=== PATIENT | female | born 1950 | race American Indian/Alaskan Native ===

== ENCOUNTER 2016-06-26 11:51 | Emergency (ER) | payer MEDICARE ==
[2016-06-26 12:11] VITALS: BP 153/88
[2016-06-26 12:42] LABS: Bilirubin,Urine NEG (Negative); Blood,Urine SM (Negative); Ketones,Urine NEG (Negative); Leukocyte Esterase,Urine NEG (Negative); Mucus,Urine 3+ /HPF; Nitrite,Urine NEG (Negative); Urobilinogen,Urine < 2.0 mg/dL (<2.0)
[2016-06-26] MEDS ORDERED: TORADOL IM ONE (16:44)
--- NOTE | 2016-06-26 17:21 | Emergency Department Report ---
ED Back Pain/Injury HPI - General Chief Complaint: Extremity Injury, Lower Stated Complaint: LEGS/BACK PAIN Time Seen by Provider: 06/26/16 16:44 Source: patient Limitations: No Limitations - History of Present Illness MD Complaint: back pain Onset/Timin -: Gradual, month(s) Similar Symptoms Previously: Yes Place: home Radiation: none Severity: moderate Quality: burning, sharp, dull Consistency: constant Improves With: none Worsens With: movement Context: while lifting, bending Associated Symptoms: denies: confusion, weakness, chest pain, numbness, fever/ chills, constipation, nausea/vomiting, rash, seizure Treatments Prior to Arrival: cold therapy - Related Data Previous Rx's Medication Instructions Recorded Last Taken Type Trifluridine [Viroptic 1%] 2 drop OU QID #1 bottle 08/14/14 06/26/16 09:00 Rx Diclofenac Potassium 50 mg PO BID #20 tablet 06/26/16 Unknown Rx Triamcinolone 0.1% [Kenalog 0.1% 1 applic TP TID #1 tube 06/26/16 Unknown Rx CREAM] methylPREDNISolone [Medrol] 4 mg PO QAM #1 tab.ds.pk 06/26/16 Unknown Rx Allergies Allergy/AdvReac Type Severity Reaction Status Date / Time Penicillins Allergy Itching Verified 06/26/16 12:11 ED Review of Systems ROS: Stated complaint: LEGS/BACK PAIN Other details as noted in HPI Comment: All other systems reviewed and negative ED Past Medical Hx - Past Medical History Additional medical history: vision problems - Surgical History Past Surgical History?: No - Social History Smoking Status: Current Every Day Smoker Substance Use Type: Alcohol - Medications Home Medications: Home Medications Medication Instructions Recorded Confirmed Last Taken Type Trifluridine [Viroptic 1%] 2 drop OU QID #1 bottle 08/14/14 06/26/16 06/26/16 09 :00 Rx Diclofenac Potassium 50 mg PO BID #20 tablet 06/26/16 Unknown Rx Triamcinolone 0.1% [Kenalog 0.1% 1 applic TP TID #1 tube 06/26/16 Unknown Rx CREAM] methylPREDNISolone [Medrol] 4 mg PO QAM #1 tab.ds.pk 06/26/16 Unknown Rx ED Physical Exam - General Limitations: No Limitations General appearance: alert, in no apparent distress - Head Head exam: Present: atraumatic, normocephalic - Eye Eye exam: Present: normal appearance - ENT ENT exam: Present: mucous membranes moist - Neck Neck exam: Present: normal inspection - Respiratory Respiratory exam: Present: normal lung sounds bilaterally. Absent: respiratory distress - Cardiovascular Cardiovascular Exam: Present: regular rate, normal rhythm. Absent: systolic murmur, diastolic murmur, rubs, gallop - GI/Abdominal GI/Abdominal exam: Present: soft, normal bowel sounds - Extremities Exam Extremities exam: Present: normal inspection - Back Exam Back exam: Present: normal inspection, full ROM, tenderness, muscle spasm, paraspinal tenderness - Neurological Exam Neurological exam: Present: alert, oriented X3 - Psychiatric Psychiatric exam: Present: normal affect, normal mood - Skin Skin exam: Present: warm, dry, intact, normal color. Absent: rash ED Course Vital Signs 06/26/16 06/26/16 12:03 17:09 Temperature 97.8 F Pulse Rate 80 Respiratory 19 18 Rate Blood Pressure 153/88 O2 Sat by Pulse 100 Oximetry Critical care attestation.: If time is entered above; I have spent that time in minutes in the direct care of this critically ill patient, excluding procedure time. ED Disposition Clinical Impression: Back pain Disposition: DISCHARGED TO HOME OR SELFCARE Is pt being admited?: No Does the pt Need Aspirin: No Condition: Good Instructions: Back Pain (ED) Prescriptions: Diclofenac Potassium 50 mg PO BID #20 tablet methylPREDNISolone [Medrol] 4 mg PO QAM #1 tab.ds.pk Triamcinolone 0.1% [Kenalog 0.1% CREAM] 1 applic TP TID #1 tube Referrals: PRIMARY CARE,MD [Primary Care Provider] - 3-5 Days Time of Disposition: 17:21
--- NOTE | 2016-06-27 15:44 | Vascular Lab Report ---
Right Lower Extremity Venous Duplex Study: Reason for Exam: Right leg pain. Comments on the Right: All veins visualized are freely compressible without evidence of internal echogenicity. Flow is spontaneous and phasic throughout. No evidence of acute or chronic thrombus is seen in any of the vessels visualized. Comments on the Left: A limited duplex study was done of the proximal veins of the left lower extremity. All veins visualized are freely compressible without evidence of internal echogenicity. Flow is spontaneous and phasic throughout. No evidence of acute or chronic thrombus is seen in any of the vessels visualized. Impression: No evidence of acute or chronic deep venous thrombosis in the right lower extremity.
== END 2016-06-26 17:32 | disposition home or self-care (01) ==
LOC: ED 11:51
DX: M54.9 Dorsalgia, unspecified (principal); F17.200 Nicotine dependence, unspecified, uncomplicated; Z88.0 Allergy status to penicillin
CPT/HCPCS: 81001; 93971; 96372; 99283; J1885

== ENCOUNTER 2018-12-28 14:18 | Emergency (ER) | payer MEDICARE ==
--- NOTE | 2018-12-28 14:25 | Event Note ---
ED Screening Note Date of service: 12/28/18 Time: 14:24 ED Screening Note: 68 y/o female comes in for "I can't breath". This initial assessment/diagnostic orders/clinical plan/treatment(s) is/are subject to change based on patients health status, clinical progression and re- assessment by fellow clinical providers in the ED. Further treatment and workup at subsequent clinical providers discretion. Patient/guardian urged not to elope from the ED as their condition may be serious if not clinically assessed and managed. Initial orders include:
--- NOTE | 2018-12-28 15:14 | XRay Report ---
CHEST 1 VIEW 12/28/2018 2:57 PM INDICATION / CLINICAL INFORMATION: SOB. COMPARISON: None available. FINDINGS: SUPPORT DEVICES: None. HEART / MEDIASTINUM: Normal heart size. Atherosclerosis in the thoracic aorta. LUNGS / PLEURA: No significant pulmonary or pleural abnormality. No pneumothorax. ADDITIONAL FINDINGS: No significant additional findings. IMPRESSION: 1. No acute findings. Signer Name: Tahir Keating MD Signed: 12/28/2018 3:10 PM Workstation Name: [id number]
[2018-12-28 15:31] LABS: INR 1.03 (0.87-1.13)
[2018-12-28 15:32] LABS: Partial Thromboplastin Time 28.6 Sec. (24.2-36.6)
[2018-12-28 15:38] LABS: Alanine Aminotransferase 11 units/L (7-56); Albumin 4.2 g/dL (3.9-5); BUN/Creatinine Ratio 22; Blood Urea Nitrogen 13 mg/dL (7-17); Calcium 9.5 mg/dL (8.4-10.2); Hemolysis Index 4
[2018-12-28 15:53] LABS: Basophils % (Auto) 0.7 % (0.0-1.8); Eosinophils % (Auto) 0.1 % (0.0-4.3); Hematocrit 41.4 % (30.3-42.9); Hemoglobin 13.9 gm/dl (10.1-14.3); Lymphocytes # (Auto) 1.3 K/mm3 (1.2-5.4); Lymphocytes % (Auto) 22.3 % (13.4-35.0); Mean Corpuscular HGB Conc 34 % (30-34); Mean Corpuscular Volume 93 fl (79-97); Monocytes # (Auto) 0.3 K/mm3 (0.0-0.8); Monocytes % (Auto) 5.3 % (0.0-7.3); Platelet Count 220 K/mm3 (140-440); Red Blood Count 4.47 M/mm3 (3.65-5.03)
--- NOTE | 2018-12-28 17:22 | Emergency Department Report ---
ED General Adult HPI - General Chief complaint: Dyspnea/Respdistress Stated complaint: ZEYAD Time Seen by Provider: 12/28/18 14:24 Source: patient Mode of arrival: Ambulatory Limitations: No Limitations - History of Present Illness Initial comments: Patient is a 68-year-old female with nopast medical problems who is presenting with shortness of breath for 1 day. She denies chest pain cough congestion fevers or chills. Patient states that she also has some mild blurred vision or headache. Shortness of breath is worthless with exertion. The present for the last 24 hours. Patient states she has never been told she has elevated blood pressure is not on medications. - Related Data Previous Rx's Medication Instructions Recorded Last Taken Type Trifluridine [Viroptic 1%] 2 drop OU QID #1 bottle 08/14/14 06/26/16 09:00 Rx Diclofenac Potassium 50 mg PO BID #20 tablet 06/26/16 Unknown Rx Triamcinolone 0.1% [Kenalog 0.1% 1 applic TP TID #1 tube 06/26/16 Unknown Rx CREAM] methylPREDNISolone [Medrol] 4 mg PO QAM #1 tab.ds.pk 06/26/16 Unknown Rx Amlodipine Besylate [Norvasc] 5 mg PO DAILY #30 tablet 12/28/18 Unknown Rx Latanoprost 0.005% 1 drop OP QPM #1 bottle 12/28/18 Unknown Rx Allergies Allergy/AdvReac Type Severity Reaction Status Date / Time Penicillins Allergy Itching Verified 06/26/16 12:11 ED Review of Systems ROS: Stated complaint: ZEYAD Other details as noted in HPI Comment: All other systems reviewed and negative ED Past Medical Hx - Past Medical History Previous Medical History?: Yes Additional medical history: vision problems - Surgical History Past Surgical History?: No - Social History Smoking Status: Current Every Day Smoker Substance Use Type: None - Medications Home Medications: Home Medications Medication Instructions Recorded Confirmed Last Taken Type Trifluridine [Viroptic 1%] 2 drop OU QID #1 bottle 08/14/14 06/26/16 06/26/16 09:00 Rx Diclofenac Potassium 50 mg PO BID #20 tablet 06/26/16 Unknown Rx Triamcinolone 0.1% [Kenalog 0.1% 1 applic TP TID #1 tube 06/26/16 Unknown Rx CREAM] methylPREDNISolone [Medrol] 4 mg PO QAM #1 tab.ds.pk 06/26/16 Unknown Rx Amlodipine Besylate [Norvasc] 5 mg PO DAILY #30 tablet 12/28/18 Unknown Rx Latanoprost 0.005% 1 drop OP QPM #1 bottle 12/28/18 Unknown Rx ED Physical Exam - General Limitations: No Limitations General appearance: alert, in no apparent distress - Head Head exam: Present: atraumatic, normocephalic - Eye Eye exam: Present: normal appearance - ENT ENT exam: Present: mucous membranes moist - Neck Neck exam: Present: normal inspection - Respiratory Respiratory exam: Present: normal lung sounds bilaterally. Absent: respiratory distress, wheezes, rales, rhonchi - Cardiovascular Cardiovascular Exam: Present: regular rate, normal rhythm, normal heart sounds. Absent: systolic murmur, diastolic murmur, rubs, gallop - GI/Abdominal GI/Abdominal exam: Present: soft, normal bowel sounds. Absent: distended, tenderness, guarding, rebound - Extremities Exam Extremities exam: Present: normal inspection - Back Exam Back exam: Present: normal inspection - Neurological Exam Neurological exam: Present: alert, oriented X3 - Psychiatric Psychiatric exam: Present: normal affect, normal mood - Skin Skin exam: Present: warm, dry, intact, normal color. Absent: rash ED Course Vital Signs 12/28/18 12/28/18 12/28/18 14:22 15:12 15:15 Temperature 97.3 F L Pulse Rate 74 73 Respiratory 18 20 20 Rate Blood Pressure 184/110 Blood Pressure 169/112 [Right] O2 Sat by Pulse 95 95 Oximetry 12/28/18 16:33 Temperature Pulse Rate 72 Respiratory 18 Rate Blood Pressure 164/99 Blood Pressure 164/99 [Right] O2 Sat by Pulse 95 Oximetry ED Medical Decision Making - Lab Data Result diagrams: 12/28/18 14:58 12/28/18 14:58 Lab Results 12/28/18 12/28/18 12/28/18 Range/Units 14:58 14:58 14:58 WBC 6.1 (4.5-11.0) K/mm3 RBC 4.47 (3.65-5.03) M/mm3 Hgb 13.9 (10.1-14.3) gm/dl Hct 41.4 (30.3-42.9) % MCV 93 (79-97) fl MCH 31 (28-32) pg MCHC 34 (30-34) % RDW 14.0 (13.2-15.2) % Plt Count 220 (140-440) K/mm3 Lymph % (Auto) 22.3 (13.4-35.0) % [place] % (Auto) 5.3 (0.0-7.3) % Eos % (Auto) 0.1 (0.0-4.3) % Baso % (Auto) 0.7 (0.0-1.8) % Lymph # 1.3 (1.2-5.4) K/mm3 [place] # 0.3 (0.0-0.8) K/mm3 Eos # 0.0 (0.0-0.4) K/mm3 Baso # 0.0 (0.0-0.1) K/mm3 Seg Neutrophils % 71.6 H (40.0-70.0) % Seg Neutrophils # 4.3 (1.8-7.7) K/mm3 PT 13.4 (12.2-14.9) Sec. INR 1.03 (0.87-1.13) APTT 28.6 (24.2-36.6) Sec. Sodium 140 (137-145) mmol/L Potassium 4.0 (3.6-5.0) mmol/L Chloride 102.2 (98-107) mmol/L Carbon Dioxide 25 (22-30) mmol/L Anion Gap 17 mmol/L BUN 13 (7-17) mg/dL Creatinine 0.6 L (0.7-1.2) mg/dL Estimated GFR > 60 ml/min BUN/Creatinine Ratio 22 % Glucose 95 (65-100) mg/dL Calcium 9.5 (8.4-10.2) mg/dL Total Bilirubin 0.40 (0.1-1.2) mg/dL AST 15 (5-40) units/L ALT 11 (7-56) units/L Alkaline Phosphatase 68 (35-129) units/L Troponin T < 0.010 (0.00-0.029) ng/mL NT-Pro-B Natriuret Pep (0-900) pg/mL Total Protein 8.0 (6.3-8.2) g/dL Albumin 4.2 (3.9-5) g/dL Albumin/Globulin Ratio 1.1 % 12/28/18 Range/Units 15:22 WBC (4.5-11.0) K/mm3 RBC (3.65-5.03) M/mm3 Hgb (10.1-14.3) gm/dl Hct (30.3-42.9) % MCV (79-97) fl MCH (28-32) pg MCHC (30-34) % RDW (13.2-15.2) % Plt Count (140-440) K/mm3 Lymph % (Auto) (13.4-35.0) % [place] % (Auto) (0.0-7.3) % Eos % (Auto) (0.0-4.3) % Baso % (Auto) (0.0-1.8) % Lymph # (1.2-5.4) K/mm3 [place] # (0.0-0.8) K/mm3 Eos # (0.0-0.4) K/mm3 Baso # (0.0-0.1) K/mm3 Seg Neutrophils % (40.0-70.0) % Seg Neutrophils # (1.8-7.7) K/mm3 PT (12.2-14.9) Sec. INR (0.87-1.13) APTT (24.2-36.6) Sec. Sodium (137-145) mmol/L Potassium (3.6-5.0) mmol/L Chloride (98-107) mmol/L Carbon Dioxide (22-30) mmol/L Anion Gap mmol/L BUN (7-17) mg/dL Creatinine (0.7-1.2) mg/dL Estimated GFR ml/min BUN/Creatinine Ratio % Glucose (65-100) mg/dL Calcium (8.4-10.2) mg/dL Total Bilirubin (0.1-1.2) mg/dL AST (5-40) units/L ALT (7-56) units/L Alkaline Phosphatase (35-129) units/L Troponin T (0.00-0.029) ng/mL NT-Pro-B Natriuret Pep 49.66 (0-900) pg/mL Total Protein (6.3-8.2) g/dL Albumin (3.9-5) g/dL Albumin/Globulin Ratio % - EKG Data -: EKG Interpreted by Me EKG shows normal: sinus rhythm, axis, intervals, QRS complexes, ST-T waves - EKG Data Interpretation: LVH, other (anterior Q waves) - Radiology Data CHEST 1 VIEW 12/28/2018 2:57 PM INDICATION / CLINICAL INFORMATION: SOB. COMPARISON: None available. FINDINGS: SUPPORT DEVICES: None. HEART / MEDIASTINUM: Normal heart size. Atherosclerosis in the thoracic aorta. LUNGS / PLEURA: No significant pulmonary or pleural abnormality. No pneumo thorax. ADDITIONAL FINDINGS: No significant additional findings. IMPRESSION: 1. No acute findings. Signer Name: Tahir Keating MD Signed: 12/28/2018 3:10 PM Workstation Name: [id number] - Medical Decision Making Patient is 68-year-old [place] female presenting with elevated blood pressure and short of breath with exertion. Symptoms present for greater than 24 hours. Patient's troponin is negative ruling out HI. Chest x-ray shows no acute process. The patient's elevated blood pressure was treated and the patient will be started on blood pressure management with follow-up with cardiology. Critical care attestation.: If time is entered above; I have spent that time in minutes in the direct care of this critically ill patient, excluding procedure time. ED Disposition Clinical Impression: Hypertensive urgency Disposition: DC-01 TO HOME OR SELFCARE Is pt being admited?: No Does the pt Need Aspirin: No Condition: Stable Instructions: Hypertension (ED) Referrals: PETROS REY MD [Staff Physician] - 3-5 Days Time of Disposition: 17:24
[2018-12-28 18:13] VITALS: BP 154/104
== END 2018-12-28 18:00 | disposition home or self-care (01) ==
LOC: ED 14:18
DX: I16.0 Hypertensive urgency (principal); I10 Essential (primary) hypertension; R06.02 Shortness of breath; F17.200 Nicotine dependence, unspecified, uncomplicated; Z79.899 Other long term (current) drug therapy; Z88.0 Allergy status to penicillin
CPT/HCPCS: 36415; 71045; 80053; 83880; 84484; 85025; 85610; 85730; 93005; 93010; 96374

== ENCOUNTER 2020-03-29 10:27 | Emergency (ER) | payer OTHER, MEDICARE ==
[2020-03-29 10:45] VITALS: BP 118/80
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
== END 2020-03-29 15:33 | disposition home or self-care (01) ==
LOC: ED 10:27
DX: S13.4XXA Sprain of ligaments of cervical spine, initial encounter (principal); S39.012A Strain of muscle, fascia and tendon of lower back, initial encounter; F17.200 Nicotine dependence, unspecified, uncomplicated; Z88.0 Allergy status to penicillin; Z79.899 Other long term (current) drug therapy; V49.59XA Passenger injured in collision with other motor vehicles in traffic accident, initial encounter; Y93.89 Activity, other specified; Y92.488 Other paved roadways as the place of occurrence of the external cause; Y99.8 Other external cause status
CPT/HCPCS: 72040; 72070; 72100; 99282

== ENCOUNTER 2021-09-21 18:34 | Emergency (ER) | payer MEDICARE ==
--- NOTE | 2021-09-22 06:56 | Emergency Department Report ---
HPI - General Chief Complaint: Upper Respiratory Infection Time Seen by Provider: 09/22/21 06:43 - HPI HPI: Room 22 The patient is a 70-year-old female present with a chief complaint of hemoptysis. Patient states for the past 2 to 3 days she had a cough has been productive of mucus and blood. Patient states she has had shortness of breath and subjective fever for the same period time. Patient denies rhinorrhea. The patient is a smoker and states she stopped smoking when her symptoms began. Patient states she has been vaccinated against COVID receiving a total of 3 doses ED Past Medical Hx - Past Medical History Previous Medical History?: Yes Hx Hypertension: Yes (History) Additional medical history: vision problems - Surgical History Past Surgical History?: Yes Additional Surgical History: cataract surgery - Family History Family history: no significant - Social History Smoking Status: Former Smoker (None x 3 days) Substance Use Type: None (Denies illicit drug use) - Medications Home Medications: Home Medications Medication Instructions Recorded Confirmed Last Taken Type Trifluridine [Viroptic 1%] 2 drop OU QID #1 bottle 08/14/14 06/26/16 06/26/16 09:00 Rx Diclofenac Potassium 50 mg PO BID #20 tablet 06/26/16 Unknown Rx Triamcinolone 0.1% [Kenalog 0.1% 1 applic TP TID #1 tube 06/26/16 Unknown Rx CREAM] methylPREDNISolone [Medrol] 4 mg PO QAM #1 tab.ds.pk 06/26/16 Unknown Rx Amlodipine Besylate [Norvasc] 5 mg PO DAILY #30 tablet 12/28/18 Unknown Rx Latanoprost 0.005% 1 drop OP QPM #1 bottle 12/28/18 Unknown Rx Acetaminophen [Acetaminophen 8 650 mg PO Q8H PRN #20 tablet.er 03/29/20 Unknown Rx Hour] Cyclobenzaprine HCl [Flexeril 5 MG 5 mg PO QHS PRN #5 tab 03/29/20 Unknown Rx TAB] Albuterol Mdi (or & Nicu Only) 2 puff IH QID PRN #8.5 gram 09/22/21 Unknown Rx [ProAir HFA Inhaler] Azithromycin [Zithromax Z-HONG] 0 mg PO DAILY #6 tab 09/22/21 Unknown Rx Benzonatate [Tessalon Perles] 100 mg PO Q8HR #30 cap 09/22/21 Unknown Rx ED Review of Systems ROS: Stated complaint: SPITTING UP BLOOD Other details as noted in HPI Constitutional: fever (Subjective) Eyes: denies: eye pain ENT: denies: throat pain Respiratory: cough, shortness of breath, other (Hemoptysis) Cardiovascular: denies: chest pain Endocrine: no symptoms reported Gastrointestinal: denies: vomiting Genitourinary: denies: dysuria Musculoskeletal: denies: back pain Neurological: headache (Had a headache but this resolved) Physical Exam - Physical Exam Vital Signs: Vital Signs 09/21/21 09/22/21 09/22/21 20:34 04:50 05:15 Temperature 98.9 F 98.2 F Pulse Rate 76 74 70 Respiratory 18 20 19 Rate Blood Pressure 125/88 Blood Pressure 132/92 132/79 [Right] O2 Sat by Pulse 93 95 95 Oximetry 09/22/21 09/22/21 09/22/21 05:30 05:45 06:00 Temperature Pulse Rate 70 70 65 Respiratory 20 18 18 Rate Blood Pressure 142/88 141/91 134/82 Blood Pressure [Right] O2 Sat by Pulse 96 97 95 Oximetry 09/22/21 09/22/21 09/22/21 06:15 06:30 06:45 Temperature Pulse Rate 68 71 71 Respiratory 19 15 16 Rate Blood Pressure 135/86 125/83 141/93 Blood Pressure [Right] O2 Sat by Pulse 94 95 96 Oximetry Physical Exam: GENERAL: The patient is well-developed well-nourished female lying on stretcher not appearing to be in acute distress. [] HEENT: Normocephalic. Atraumatic. Extraocular motions are intact. Patient has moist mucous membranes. NECK: Supple. Trachea midline CHEST/LUNGS: Clear to auscultation. There is no respiratory distress noted. HEART/CARDIOVASCULAR: Regular. There is no tachycardia. There is no gallop rub or murmur. ABDOMEN: Abdomen is soft, nontender. Patient has normal bowel sounds. There is no abdominal distention. SKIN: There is no rash. There is no edema. There is no diaphoresis. NEURO: The patient is awake, alert, and oriented. The patient is cooperative. The patient has no focal neurologic deficits. The patient has normal speech. GCS 15 MUSCULOSKELETAL: There is no evidence of acute injury. ED Course Vital Signs 09/21/21 09/22/21 09/22/21 20:34 04:50 05:15 Temperature 98.9 F 98.2 F Pulse Rate 76 74 70 Respiratory 18 20 19 Rate Blood Pressure 125/88 Blood Pressure 132/92 132/79 [Right] O2 Sat by Pulse 93 95 95 Oximetry 09/22/21 09/22/21 09/22/21 05:30 05:45 06:00 Temperature Pulse Rate 70 70 65 Respiratory 20 18 18 Rate Blood Pressure 142/88 141/91 134/82 Blood Pressure [Right] O2 Sat by Pulse 96 97 95 Oximetry 09/22/21 09/22/21 09/22/21 06:15 06:30 06:45 Temperature Pulse Rate 68 71 71 Respiratory 19 15 16 Rate Blood Pressure 135/86 125/83 141/93 Blood Pressure [Right] O2 Sat by Pulse 94 95 96 Oximetry ED Medical Decision Making - Lab Data Result diagrams: 09/22/21 07:44 09/22/21 07:44 - Radiology Data Radiology results: report reviewed (CT chest), image reviewed (CT chest) [address] [address] Cat Scan Report Signed Patient: MARK MEDRANO MR#: [id number] 510 : 1950 Acct:[id number] Age/Sex: 70 / F ADM Date: 09/21/21 Loc: ED Attending Dr: Ordering Physician: DERIK DILLARD MD Date of Service: 09/22/21 Procedure(s): CT angio chest Accession Number(s): [id number] cc: DERIK DILLARD MD CTA CHEST WITH CONTRAST INDICATION / CLINICAL INFORMATION: Hemoptysis. TECHNIQUE: Axial CT images were obtained through the chest after injection of 75 cc Omnipaque 350 IV contrast. 3 plane MIP and/or 3D reconstructions were produced. All CT scans at this location are performed using CT dose reduction for ALARA by means of automated exposure control. COMPARISON: Chest radiograph dated 12/28/2018 FINDINGS: PULMONARY ARTERIES: No pulmonary emboli. THORACIC AORTA: No significant abnormality. Mild dilation of the ascending aorta measuring 4.2 cm. HEART: No significant abnormality. CORONARY ARTERY CALCIFICATION: Moderate. MEDIASTINUM / LEIGHANN: No significant abnormality. PLEURA: No pleural effusion. No pneumothorax. LUNGS: Upper lobe predominant centrilobular paraseptal emphysema. Mild increased reticular opacities in the left upper lobe which may be an element of chronic interstitial lung disease. ADDITIONAL FINDINGS: None. UPPER ABDOMEN: No acute findings. SKELETAL STRUCTURES: Scattered degeneration IMPRESSION: 1. No CT evidence for pulmonary embolism. 2. No acute findings. 3. Mild dilation of the ascending aorta. 4. Upper lobe predominant emphysema. Signer Name: Beka Grubbs DO Signed: 09/22/2021 10:49 AM Workstation Name: [id number] Transcribed By: AMANDEEP Dictated By: BEKA GRUBBS DO Electronically Authenticated By: BEKA GRUBBS DO Signed Date/Time: 09/22/211048 DD/ 43 TD/TT: - Differential Diagnosis Bronchitis, PE, lung CA Critical care attestation.: If time is entered above; I have spent that time in minutes in the direct care of this critically ill patient, excluding procedure time. ED Disposition Clinical Impression: Hemoptysis, Acute bronchitis Disposition: 01 HOME / SELF CARE / HOMELESS Is pt being admited?: No Does the pt Need Aspirin: No Condition: Stable Instructions: Acute Bronchitis (ED), Hemoptysis, Acute Bronchitis, Adult Additional Instructions: Return to the emergency department should you develop worsening symptoms, inability to tolerate food or liquids, high fever or any other concerns Prescriptions: Albuterol Mdi (or & Nicu Only) [ProAir HFA Inhaler] 2 puff IH QID PRN #8.5 gram PRN Reason: Shortness Of Breath Benzonatate [Tessalon Perles] 100 mg PO Q8HR #30 cap Azithromycin [Zithromax Z-HONG] 0 mg PO DAILY #6 tab Referrals: KATARINA BOYKIN MD [Staff Physician] - 3-5 Days (Dr. Boykin is a primary physician. Please follow-up with him to be established as a patient) TOÑITO NEWTON MD [Staff Physician] - 3-5 Days (Dr. Newton is an pot filler. Please follow-up with him for further evaluation) Time of Disposition: 11:12
[2021-09-22 08:32] LABS: INR 0.91 (0.87-1.13)
[2021-09-22 08:33] LABS: Partial Thromboplastin Time 27.3 Sec. (24.2-36.6)
[2021-09-22 09:29] LABS: BUN/Creatinine Ratio 26; Blood Urea Nitrogen 18 mg/dL (7-17); Calcium 9.4 mg/dL (8.4-10.2); Hemolysis Index 15
--- NOTE | 2021-09-22 10:53 | Cat Scan Report ---
CTA CHEST WITH CONTRAST INDICATION / CLINICAL INFORMATION: Hemoptysis. TECHNIQUE: Axial CT images were obtained through the chest after injection of 75 cc Omnipaque 350 IV contrast. 3 plane MIP and/or 3D reconstructions were produced. All CT scans at this location are perf ormed using CT dose reduction for ALARA by means of automated exposure control. COMPARISON: Chest radiograph dated 12/28/2018 FINDINGS: PULMONARY ARTERIES: No pulmonary emboli. THORACIC AORTA: No significant abnormality. Mild dilation of the ascending aorta measuring 4.2 cm. HEART: No significant abnormality. CORONARY ARTERY CALCIFICATION: Moderate. MEDIASTINUM / LEIGHANN: No significant abnormality. PLEURA: No pleural effusion. No pneumothorax. LUNGS: Upper lobe predominant centrilobular paraseptal emphysema. Mild increased reticular opacities in the left upper lobe which may be an element of chronic interstitial lung disease. ADDITIONAL FINDINGS: None. UPPER ABDOMEN: No acute findings. SKELETAL STRUCTURES: Scattered degeneration IMPRESSION: 1. No CT evidence for pulmonary embolism. 2. No acute findings. 3. Mild dilation of the ascending aorta. 4. Upper lobe predominant emphysema. Signer Name: Beka Manrique DO Signed: 09/22/2021 10:49 AM Workstation Name: [id number]
[2021-09-22 11:01] LABS: Basophils % (Auto) 0.2 % (0.0-1.8); Eosinophils % (Auto) 0.3 % (0.0-4.3); Hematocrit 40.8 % (30.3-42.9); Hemoglobin 13.7 gm/dl (10.1-14.3); Lymphocytes % (Auto) 50.7 % (13.4-35.0); Mean Corpuscular HGB Conc 34 % (30-34); Mean Corpuscular Volume 91 fl (79-97); Monocytes # (Auto) 0.4 K/mm3 (0.0-0.8); Platelet Count 194 K/mm3 (140-440); Red Cell Distribution Width 15.1 % (13.2-15.2)
[2021-09-22 12:02] VITALS: BP 131/102
== END 2021-09-22 15:00 | disposition home or self-care (01) ==
LOC: ED 18:34
DX: R04.2 Hemoptysis (principal); J20.9 Acute bronchitis, unspecified; Z87.891 Personal history of nicotine dependence; I10 Essential (primary) hypertension
CPT/HCPCS: 36415; 71275; 80048; 85025; 85379; 85610; 85730; 99284; Q9967

== ENCOUNTER 2021-10-01 23:00 | Observation (INO) | payer MEDICARE ==
[2021-10-02] MEDS ORDERED: ASPIRIN 81 MG TAB CHEW PO ONE (00:39)
[2021-10-02] MEDS ORDERED: SODIUM CHLORIDE 0.9% 1000 ML 1,000 ML IV ONE (00:39)
[2021-10-02] MEDS ORDERED: NITROGLYCERIN 0.4 MG TAB SUBL SL ONE (00:39)
[2021-10-02] MEDS ORDERED: MORPHINE 2 MG/1 ML INJ IV ONE ×2 (00:43→02:34)
--- NOTE | 2021-10-02 00:48 | Emergency Department Report ---
ED Chest Pain HPI - General Chief Complaint: Chest Pain Stated Complaint: CHEST PAIN Time Seen by Provider: 10/02/21 00:39 Source: EMS Mode of arrival: Stretcher Limitations: No Limitations - History of Present Illness Initial Comments: 70 yo F who present with chest pain that started tonight after a hot shower with palpitation. No fever or chills. Pain is radiating to under her left arm. She rated the pain as 8/10 in severity. No other modifying or associated factors. MD Complaint: chest pain - Related Data Previous Rx's Medication Instructions Recorded Last Taken Type Trifluridine [Viroptic 1%] 2 drop OU QID #1 bottle 08/14/14 06/26/16 09:00 Rx Diclofenac Potassium 50 mg PO BID #20 tablet 06/26/16 Unknown Rx Triamcinolone 0.1% [Kenalog 0.1% 1 applic TP TID #1 tube 06/26/16 Unknown Rx CREAM] methylPREDNISolone [Medrol] 4 mg PO QAM #1 tab.ds.pk 06/26/16 Unknown Rx Amlodipine Besylate [Norvasc] 5 mg PO DAILY #30 tablet 12/28/18 Unknown Rx Latanoprost 0.005% 1 drop OP QPM #1 bottle 12/28/18 Unknown Rx Acetaminophen [Acetaminophen 8 650 mg PO Q8H PRN #20 tablet.er 03/29/20 Unknown Rx Hour] Cyclobenzaprine HCl [Flexeril 5 MG 5 mg PO QHS PRN #5 tab 03/29/20 Unknown Rx TAB] Albuterol Mdi (or & Nicu Only) 2 puff IH QID PRN #8.5 gram 09/22/21 Unknown Rx [ProAir HFA Inhaler] Azithromycin [Zithromax Z-HONG] 0 mg PO DAILY #6 tab 09/22/21 Unknown Rx Benzonatate [Tessalon Perles] 100 mg PO Q8HR #30 cap 09/22/21 Unknown Rx Allergies Allergy/AdvReac Type Severity Reaction Status Date / Time Penicillins Allergy Itching Verified 09/21/21 20:37 Heart Score - HEART Score History: Slightly suspicious EKG: Normal Age: > 65 Risk factors: No known risk factors Troponin: < normal limit HEART Score: 2 - EKG Read Time Time EKG Completed: 00:26 EKG Read Time: 00:48 - Critical Actions Critical Actions: 0-3 pts:0.9-1.7%risk of adverse cardiac event.Candidate for discharge ED Review of Systems ROS: Stated complaint: CHEST PAIN Other details as noted in HPI Comment: All other systems reviewed and negative Cardiovascular: chest pain ED Past Medical Hx - Past Medical History Previous Medical History?: Yes Hx Hypertension: Yes (History) Additional medical history: vision problems - Surgical History Past Surgical History?: Yes Additional Surgical History: cataract surgery - Social History Smoking Status: Current Every Day Smoker Substance Use Type: None - Medications Home Medications: Home Medications Medication Instructions Recorded Confirmed Last Taken Type Trifluridine [Viroptic 1%] 2 drop OU QID #1 bottle 08/14/14 06/26/16 06/26/16 09:00 Rx Diclofenac Potassium 50 mg PO BID #20 tablet 06/26/16 Unknown Rx Triamcinolone 0.1% [Kenalog 0.1% 1 applic TP TID #1 tube 06/26/16 Unknown Rx CREAM] methylPREDNISolone [Medrol] 4 mg PO QAM #1 tab.ds.pk 06/26/16 Unknown Rx Amlodipine Besylate [Norvasc] 5 mg PO DAILY #30 tablet 12/28/18 Unknown Rx Latanoprost 0.005% 1 drop OP QPM #1 bottle 12/28/18 Unknown Rx Acetaminophen [Acetaminophen 8 650 mg PO Q8H PRN #20 tablet.er 03/29/20 Unknown Rx Hour] Cyclobenzaprine HCl [Flexeril 5 MG 5 mg PO QHS PRN #5 tab 03/29/20 Unknown Rx TAB] Albuterol Mdi (or & Nicu Only) 2 puff IH QID PRN #8.5 gram 09/22/21 Unknown Rx [ProAir HFA Inhaler] Azithromycin [Zithromax Z-HONG] 0 mg PO DAILY #6 tab 09/22/21 Unknown Rx Benzonatate [Tessalon Perles] 100 mg PO Q8HR #30 cap 09/22/21 Unknown Rx ED Physical Exam - General Limitations: No Limitations General appearance: alert, in no apparent distress - Head Head exam: Present: normal inspection - Eye Eye exam: Present: normal appearance Pupils: Present: normal accommodation - ENT ENT exam: Present: normal exam, normal orophraynx, mucous membranes moist - Neck Neck exam: Present: normal inspection, full ROM. Absent: tenderness - Respiratory Respiratory exam: Present: normal lung sounds bilaterally. Absent: respiratory distress, accessory muscle use - Cardiovascular Cardiovascular Exam: Present: regular rate, normal rhythm, normal heart sounds - GI/Abdominal GI/Abdominal exam: Present: soft, normal bowel sounds. Absent: distended, tenderness - Extremities Exam Extremities exam: Present: normal inspection, normal capillary refill - Back Exam Back exam: Present: normal inspection. Absent: tenderness - Neurological Exam Neurological exam: Present: alert, oriented X3 - Psychiatric Psychiatric exam: Present: normal affect, normal mood - Skin Skin exam: Present: warm, normal color ED Course Vital Signs 10/02/21 10/02/21 10/02/21 00:11 01:05 01:06 Temperature 98.9 F Pulse Rate 96 H 81 97 H Respiratory 18 17 Rate Blood Pressure 136/92 133/88 Blood Pressure 133/88 [Left] O2 Sat by Pulse 98 99 Oximetry 10/02/21 10/02/21 01:35 02:42 Temperature Pulse Rate Respiratory 18 18 Rate Blood Pressure Blood Pressure [Left] O2 Sat by Pulse Oximetry - Reevaluation(s) Reevaluation #1: 10/02/21 03:07 given Lovenox 1mg/kg SQ x 1-- - Consultations Consultation #1: 10/02/21 03:06 Dr Sandoval consulted with [facility] for admission and complete cardiac workup that will including cardiac echo-- ALEAH score - Aleah Score Age > 65: (0) No Aspirin use within the Past 7 Days: (0) No 3 or more CAD Risk Factors: (0) No 2 or more Angina events in past 24 hrs: (0) No Known CAD with more than 50% Stenosis: (0) No Elevated Cardiac Markers: (0) No ST Deviation Greater than 0.5mm: (0) No ALEAH Score: 0 ED Medical Decision Making - Lab Data Result diagrams: 10/02/21 01:00 10/02/21 01:00 - EKG Data -: EKG Interpreted by Me - EKG Data 10/02/21 00:51 Noted with atrial fibrillation at a rate of 87 bpm with no acute ST or T wave abnormality in this abnormal ECG. - Medical Decision Making Here with chest pain/pressure--differential could be but not limited to myocardial infarction, pulmonary embolism, costochondritis, anxiety, gastritis, GERD, pancreatitis, and or pyelonephritis--in order to rule out the above-- so will go ahead and order routine cardiopulmonary work-up that include troponin, EKG, chest x-ray, BNP, CKMB, and CBC, CMP and urinalysis for any correctable infectious process or electrolyte abnormality as a cause. EKG shows atrial fibrillation this might be the cause of this patient's chest pressure considering that this is new irregular and atrial fibrillation we will go ahead and follow the above labs--and consider admitting this patient for echocardiogram and full cardiac work-up. Critical care attestation.: If time is entered above; I have spent that time in minutes in the direct care of this critically ill patient, excluding procedure time. ED Disposition Clinical Impression: Chest pain Qualifiers: Chest pain type: unspecified Qualified Code(s): R07.9 - Chest pain, unspecified A-fib Qualifiers: Atrial fibrillation type: unspecified Qualified Code(s): I48.91 - Unspecified atrial fibrillation Disposition: 09 ADMITTED INPATIENT Is pt being admited?: Yes Does the pt Need Aspirin: No Condition: Stable Instructions: Nonspecific Chest Pain, Adult Time of Disposition: 03:07
[2021-10-02] MEDS ORDERED: ONDANSETRON 4 MG/2 ML INJ ONE (01:12)
[2021-10-02] MEDS ORDERED: ONDANSETRON 4 MG/2 ML INJ IV ONE ×2 (01:14→02:35)
--- NOTE | 2021-10-02 01:22 | XRay Report ---
CHEST 1 VIEW INDICATION / CLINICAL INFORMATION: Chest Pain. COMPARISON: Chest x-ray 12/28/2018 FINDINGS: SUPPORT DEVICES: None. HEART / MEDIASTINUM: Borderline cardiomegaly. [id number] ectasia of the thoracic aorta. LUNGS / PLEURA: Stable chronic appearing interstitial prominence. No focal airspace disease or consol idation. BONES: No significant osseous abnormality. ADDITIONAL FINDINGS: No significant additional findings. IMPRESSION: 1. No active cardiopulmonary disease. Signer Name: Javi Robles II, MD Signed: 10/02/2021 1:17 AM Workstation Name: [id number]
[2021-10-02 01:29] LABS: Basophils % (Auto) 0.4 % (0.0-1.8); Eosinophils % (Auto) 0.3 % (0.0-4.3); Hematocrit 39.8 % (30.3-42.9); Lymphocytes # (Auto) 1.3 K/mm3 (1.2-5.4); Lymphocytes % (Auto) 20.3 % (13.4-35.0); Mean Corpuscular HGB Conc 33 % (30-34); Mean Corpuscular Volume 91 fl (79-97); Monocytes # (Auto) 0.3 K/mm3 (0.0-0.8); Platelet Count 297 K/mm3 (140-440); Red Blood Count 4.37 M/mm3 (3.65-5.03); Red Cell Distribution Width 14.9 % (13.2-15.2)
[2021-10-02 01:37] LABS: INR 0.96 (0.87-1.13)
[2021-10-02 01:38] LABS: Partial Thromboplastin Time 26.3 Sec. (24.2-36.6)
[2021-10-02 01:44] LABS: Alanine Aminotransferase 13 units/L (7-56); Albumin 4.2 g/dL (3.9-5); BUN/Creatinine Ratio 18; Blood Urea Nitrogen 14 mg/dL (7-17); Calcium 9.8 mg/dL (8.4-10.2); Hemolysis Index 15
[2021-10-02] MEDS ORDERED: ENOXAPARIN 100 MG/1 ML INJ SUB-Q ONE (03:45)
[2021-10-02] MEDS ORDERED: traMADol 50 MG TAB PO PRN (04:38)
[2021-10-02] MEDS ORDERED: NITROGLYCERIN 0.4 MG TAB SUBL SL PRN (04:38)
[2021-10-02] MEDS ORDERED: ACETAMINOPHEN 325 MG TAB PO PRN (04:38)
[2021-10-02] MEDS ORDERED: MORPHINE 2 MG/1 ML INJ IV PRN (04:38)
[2021-10-02] MEDS ORDERED: ALBUTEROL 8.5 GM MDI INHALATION IH PRN (04:41)
[2021-10-02] MEDS ORDERED: SODIUM CHLORIDE 0.9% 1000 ML 1,000 ML IV SCH (04:45)
--- NOTE | 2021-10-02 04:47 | History and Physical Report ---
History of Present Illness Date of examination: 10/02/21 Date of admission: 10/02/21 Chief complaint: Chest pain History of present illness: 70 years old female with history of hypertension, tobacco abuse was brought to the emergency room because of chest pain that started tonight after a hot shower with palpitation. Chest pain is 8/10 sharp left-sided radiating under her left arm .No fever or chills. No other modifying or associated factors. In the emergency room initial cardiac enzyme is negative troponin is 0.010. EKG shows atrial fibrillation this might be the cause of this patient's chest pressure considering that this is new irregular and atrial fibrillation . Admit the patient, we will put the patient on chest pain pathway , order echocardiogram and consult sales representative printing paper Past History Past Medical History: hypertension, other (, Vision problem) Past Surgical History: Other (Cataract surgery) Social history: smoking Family history: hypertension Medications and Allergies Allergies Allergy/AdvReac Type Severity Reaction Status Date / Time Penicillins Allergy Itching Verified 09/21/21 20:37 Home Medications Medication Instructions Recorded Confirmed Last Taken Type Trifluridine [Viroptic 1%] 2 drop OU QID #1 bottle 08/14/14 06/26/16 06/26/16 09:00 Rx Diclofenac Potassium 50 mg PO BID #20 tablet 06/26/16 Unknown Rx Triamcinolone 0.1% [Kenalog 0.1% 1 applic TP TID #1 tube 06/26/16 Unknown Rx CREAM] methylPREDNISolone [Medrol] 4 mg PO QAM #1 tab.ds.pk 06/26/16 Unknown Rx Amlodipine Besylate [Norvasc] 5 mg PO DAILY #30 tablet 12/28/18 Unknown Rx Latanoprost 0.005% 1 drop OP QPM #1 bottle 12/28/18 Unknown Rx Acetaminophen [Acetaminophen 8 650 mg PO Q8H PRN #20 tablet.er 03/29/20 Unknown Rx Hour] Cyclobenzaprine HCl [Flexeril 5 MG 5 mg PO QHS PRN #5 tab 03/29/20 Unknown Rx TAB] Albuterol Mdi (or & Nicu Only) 2 puff IH QID PRN #8.5 gram 09/22/21 Unknown Rx [ProAir HFA Inhaler] Azithromycin [Zithromax Z-HONG] 0 mg PO DAILY #6 tab 09/22/21 Unknown Rx Benzonatate [Tessalon Perles] 100 mg PO Q8HR #30 cap 09/22/21 Unknown Rx Review of Systems All systems: negative Cardiovascular: chest pain, shortness of breath, dyspnea on exertion Exam - Constitutional Vitals: Temp Pulse Resp BP Pulse Ox 98.9 F 97 H 18 133/88 99 10/02/21 00:11 10/02/21 01:06 10/02/21 02:42 10/02/21 01:06 10/02/21 01:05 General appearance: Present: no acute distress, well-nourished - EENT Eyes: Present: PERRL ENT: hearing intact, clear oral mucosa - Neck Neck: Present: supple, normal ROM - Respiratory Respiratory effort: normal Respiratory: bilateral: CTA - Cardiovascular Heart Sounds: Present: S1 & S2. Absent: rub, click - Extremities Extremities: pulses symmetrical, No edema Peripheral Pulses: within normal limits - Abdominal General gastrointestinal: Present: soft, non-tender, non-distended, normal bowel sounds Female genitourinary: Present: normal - Integumentary Integumentary: Present: clear, warm, dry - Musculoskeletal Musculoskeletal: gait normal, strength equal bilaterally - Psychiatric Psychiatric: appropriate mood/affect, intact judgment & insight - Neurologic Neurologic: CNII-XII intact, moves all extremities HEART Score - HEART Score EKG: Normal Age: > 65 Risk factors: No known risk factors Troponin: Troponin T < 0.010 ng/mL (0.00-0.029) 10/02/21 01:00 Troponin: < normal limit - Critical Actions Critical Actions: 0-3 pts:0.9-1.7%risk of adverse cardiac event.Candidate for discharge Results - Labs CBC & Chem 7: 10/02/21 01:00 10/02/21 01:00 Labs: Laboratory Last Values WBC 6.4 K/mm3 (4.5-11.0) 10/02/21 01:00 RBC 4.37 M/mm3 (3.65-5.03) 10/02/21 01:00 Hgb 13.0 gm/dl (10.1-14.3) 10/02/21 01:00 Hct 39.8 % (30.3-42.9) 10/02/21 01:00 MCV 91 fl (79-97) 10/02/21 01:00 MCH 30 pg (28-32) 10/02/21 01:00 MCHC 33 % (30-34) 10/02/21 01:00 RDW 14.9 % (13.2-15.2) 10/02/21 01:00 Plt Count 297 K/mm3 (140-440) 10/02/21 01:00 Lymph % (Auto) 20.3 % (13.4-35.0) 10/02/21 01:00 Nelson % (Auto) 5.0 % (0.0-7.3) 10/02/21 01:00 Eos % (Auto) 0.3 % (0.0-4.3) 10/02/21 01:00 Baso % (Auto) 0.4 % (0.0-1.8) 10/02/21 01:00 Lymph # (Auto) 1.3 K/mm3 (1.2-5.4) 10/02/21 01:00 Nelson # (Auto) 0.3 K/mm3 (0.0-0.8) 10/02/21 01:00 Eos # (Auto) 0.0 K/mm3 (0.0-0.4) 10/02/21 01:00 Baso # (Auto) 0.0 K/mm3 (0.0-0.1) 10/02/21 01:00 Seg Neutrophils % 74.0 % (40.0-70.0) H 10/02/21 01:00 Seg Neutrophils # 4.7 K/mm3 (1.8-7.7) 10/02/21 01:00 PT 13.8 Sec. (12.2-14.9) 10/02/21 01:00 INR 0.96 (0.87-1.13) 10/02/21 01:00 APTT 26.3 Sec. (24.2-36.6) 10/02/21 01:00 Sodium 141 mmol/L (137-145) 10/02/21 01:00 Potassium 3.8 mmol/L (3.6-5.0) 10/02/21 01:00 Chloride 100.2 mmol/L (98-107) 10/02/21 01:00 Carbon Dioxide 26 mmol/L (22-30) 10/02/21 01:00 Anion Gap 19 mmol/L 10/02/21 01:00 BUN 14 mg/dL (7-17) 10/02/21 01:00 Creatinine 0.8 mg/dL (0.6-1.2) 10/02/21 01:00 Estimated GFR > 60 ml/min 10/02/21 01:00 BUN/Creatinine Ratio 18 % 10/02/21 01:00 Glucose 135 mg/dL (65-100) H 10/02/21 01:00 Calcium 9.8 mg/dL (8.4-10.2) 10/02/21 01:00 Total Bilirubin 0.30 mg/dL (0.1-1.2) 10/02/21 01:00 AST 16 units/L (5-40) 10/02/21 01:00 ALT 13 units/L (7-56) 10/02/21 01:00 Alkaline Phosphatase 63 units/L (35-129) 10/02/21 01:00 Troponin T < 0.010 ng/mL (0.00-0.029) 10/02/21 01:00 Total Protein 7.6 g/dL (6.3-8.2) 10/02/21 01:00 Albumin 4.2 g/dL (3.9-5) 10/02/21 01:00 Albumin/Globulin Ratio 1.2 % 10/02/21 01:00 Lipase 18 units/L (13-60) 10/02/21 01:00 - Imaging and Cardiology Chest x-ray: report reviewed Assessment and Plan VTE prophylaxis?: Chemical Plan of care discussed with patient/family: Yes - Patient Problems (1) ACS (acute coronary syndrome) Current Visit: Yes Status: Acute Plan to address problem: Admit the patient to the telemetry. Aspirin 325 mg p.o. daily. Lipitor 40 mg p.o. daily. Nitroglycerin as needed. Lovenox 1 mg/kg subcu every 12 hours. We will do the serial cardiac enzymes. Echocardiogram. Cardiology evaluation (2) Hypertension Current Visit: Yes Status: Acute Plan to address problem: Norvasc 5 mg p.o. daily. We continue the other home medication. We will monitor the blood pressure closely (3) A-fib Current Visit: Yes Status: Acute Qualifiers: Atrial fibrillation type: unspecified Qualified Code(s): I48.91 - Unspecified atrial fibrillation Plan to address problem: Aspirin 325 mg p.o. daily. Lipitor 40 mg p.o. daily. Nitroglycerin as needed. Lovenox 1 mg/kg subcu every 12 hours. We will do the serial cardiac enzymes. Echocardiogram. Cardiology evaluation (4) Tobacco abuse Current Visit: Yes Status: Acute Plan to address problem: We counseled the patient regarding quitting smoking. We will put the patient on nicotine patch (5) DVT prophylaxis Current Visit: Yes Status: Acute Plan to address problem: Lovenox 1 mg/kg subcu every 12 hours for DVT prophylaxis. Pepcid 20 mg p.o. twice daily for GI prophylaxis. Patient is a full code
[2021-10-02] MEDS ORDERED: NICOTINE 14 MG/24 HR PATCH TD ONE (05:50)
[2021-10-02] MEDS: BENZONATATE 100 MG CAP PO SCH ×2 (06:00→15:18)
[2021-10-02] MEDS: TRIAMCINOLONE 0.1% CREAM 15 GM TP SCH ×2 (08:55→15:18)
[2021-10-02] MEDS ORDERED: REGADENOSON 0.4 MG/5 ML INJ IV ONE (09:16)
[2021-10-02] MEDS ORDERED: amLODIPine 5 MG TAB PO SCH (10:00)
[2021-10-02] MEDS ORDERED: AZITHROMYCIN 250 MG TAB PO SCH (10:00)
[2021-10-02] MEDS ORDERED: methylPREDNISolone 4 MG TAB PO SCH (10:00)
[2021-10-02] MEDS ORDERED: ENOXAPARIN 100 MG/1 ML INJ SUB-Q SCH (10:00)
[2021-10-02] MEDS ORDERED: TRIFLURIDINE OP SCH (10:00)
--- NOTE | 2021-10-02 12:06 | Nuclear Medicine Report ---
APPROVED REPORT Exam: Nuclear Stress Test Indication: Chest pain [facility] #: [id number] Ht: 5 ft 7 in Wt: 155 lbs BSA: 1.81 m2 HR: 79 bpmBP: 172/116 mmHgBMI: 24.27 Rhythm: Sinus Rhythm Stress Test Details Stress Test: Pharmacologic stress testing performed using 0.4 mg of regadenoson per 5 mL given IV over 10 seconds. Reason for pharmacologic stress test: physical limitation. HR Resting HR: 78 bpm Max HR Achieved: 92 bpm Max Heart Rate (APMHR): 150.314820 bpm Target HR (85% APMHR): 127.914584 bpm % of APMHR: 61.33 Recovery HR: 71 bpm HR response to stress: Normal HR response to stress BP Resting BP: 144/88 mmHg Max BP: 172/116 mmHg Recovery BP: 150/89 mmHg BP response to stress: Abnormal hypertensive response to stress. ECG Resting ECG: Sinus Rhythm Stress ECG: Sinus Rhythm Arrhythmia: VPC Recovery ECG: Sinus Rhythm Recovery Arrhythmia: None Clinical Reason for Termination: Completed protocol Stress Symptoms: None NM EXAM: Myocardial Perfusion REST/STRESS Imaging Protocol: Rest Tc-99m/Stress Tc-99m 1 day Resting Data Rest SPECT myocardial perfusion imaging was performed in supine position 45 minutes following the intravenous injection of 10 mCi of Tc-99m Myoview. Time of rest injection: 0845 Pharmacologic Stress Pharmacologic stress test was performed by injecting Regadenoson 0.4 mg IV push followed by the intravenous injection of 28 mCi of Tc-99m Myoview. Time of stress injection: 0938 Gated Stress SPECT was performed 30 minutes after stress injection. The images were gated to evaluate regional wall motion and calculate left ventricular ejection fraction. Study Quality Study: excellent Lung Uptake: Normal Study Data TID = 1.08. Perfusion Wall Motion The rest and stress images show normal left ventricular wall motion. Nuclear Conclusion ECG Findings: negative for ischemia Clinical Findings: negative for ischemia Nuclear Findings: negative for ischemia Exercise Capacity: not assessed Left Ventricular Function: normal Risk Study: low Normal study. No scintigraphic evidence for myocardial ischemia or scar. Normal left ventricular size and function with no regional wall motion abnormalities.
--- NOTE | 2021-10-02 12:41 | Consultation ---
History of Present Illness Consult date: 10/02/21 Requesting physician: NANCIE RICH Consult reason: chest pain History of present illness: Patient 78-year-old female with past medical history of cataracts and tobacco abuse who was brought to the ED yesterday after a complaint of sudden onset chest pain while following a shower and eating a chili dog. Patient describes chest pain as sharp and burning located in her central chest. Pain is worsened by palpation and deep breathing. She also reports lightheadedness. Patient came to the ED for further evaluation. In the ED patient labs were unremarkable. Patient denies nausea, vomiting, diaphoresis, squeezing or crushing chest pain or palpitations. Patient is previously unknown to our practice. Cardiology is consulted for chest pain. Past History Past Medical History: hypertension, other (, Vision problem) Past Surgical History: Other (Cataract surgery) Social history: smoking Family history: hypertension, stroke Medications and Allergies Allergies Allergy/AdvReac Type Severity Reaction Status Date / Time Penicillins Allergy Itching Verified 09/21/21 20:37 Home Medications Medication Instructions Recorded Confirmed Last Taken Type Trifluridine [Viroptic 1%] 2 drop OU QID #1 bottle 08/14/14 10/02/21 06/26/16 09:00 Rx Diclofenac Potassium 50 mg PO BID #20 tablet 06/26/16 10/02/21 Unknown Rx Triamcinolone 0.1% [Kenalog 0.1% 1 applic TP TID #1 tube 06/26/16 10/02/21 Unknown Rx CREAM] methylPREDNISolone [Medrol] 4 mg PO QAM #1 tab.ds.pk 06/26/16 10/02/21 Unknown Rx Amlodipine Besylate [Norvasc] 5 mg PO DAILY #30 tablet 12/28/18 10/02/21 Unknown Rx Latanoprost 0.005% 1 drop OP QPM #1 bottle 12/28/18 10/02/21 Unknown Rx Acetaminophen [Acetaminophen 8 650 mg PO Q8H PRN #20 tablet.er 03/29/20 10/02/21 Unknown Rx Hour] Cyclobenzaprine HCl [Flexeril 5 MG 5 mg PO QHS PRN #5 tab 03/29/20 10/02/21 Unknown Rx TAB] Albuterol Mdi (or & Nicu Only) 2 puff IH QID PRN #8.5 gram 09/22/21 10/02/21 Unknown Rx [ProAir HFA Inhaler] Azithromycin [Zithromax Z-HONG] 0 mg PO DAILY #6 tab 09/22/21 10/02/21 Unknown Rx Benzonatate [Tessalon Perles] 100 mg PO Q8HR #30 cap 09/22/21 10/02/21 Unknown Rx Active Meds: Active Medications Acetaminophen (Acetaminophen 325 Mg Tab) 650 mg PO Q6H PRN PRN Reason: Pain, Mild (1-3) Albuterol (Albuterol 8.5 Gm Mdi Inhalation) 2 puff IH QIDRT PRN PRN Reason: Shortness Of Breath Amlodipine Besylate (Amlodipine 5 Mg Tab) 5 mg PO DAILY [facility] Last Admin: 10/02/21 11:36 Dose: 5 mg Aspirin (Aspirin Ec 325 Mg Tab) 325 mg PO QDAY MARIANNE Atorvastatin Calcium (Atorvastatin 40 Mg Tab) 40 mg PO QHS MARIANNE Azithromycin (Azithromycin 250 Mg Tab) 250 mg PO DAILY [facility]; Protocol Last Admin: 10/02/21 11:36 Dose: 250 mg Benzonatate (Benzonatate 100 Mg Cap) 100 mg PO Q8HR MARIANNE Last Admin: 10/02/21 06:00 Dose: 100 mg Enoxaparin Sodium (Enoxaparin 100 Mg/1 Ml Inj) 70 mg 1 mg/kg (70 mg) SUB-Q Q12HR [facility]; Protocol Last Admin: 10/02/21 11:36 Dose: 70 mg Sodium Chloride (Nacl 0.9% 1000 Ml) 1,000 mls @ 100 mls/hr IV DIRECT MARIANNE Last Admin: 10/02/21 06:00 Dose: 100 mls/hr Latanoprost (Latanoprost 0.005% Ophth Soln 2.5 Ml) 1 drops OD QPM MARIANNE Methylprednisolone (Methylprednisolone 4 Mg Tab) 4 mg PO QAM MARIANNE Last Admin: 10/02/21 11:37 Dose: 4 mg Miscellaneous Medication (Trifluridine [Viroptic 1%]) 2 drop OP QID MARIANNE Morphine Sulfate (Morphine 2 Mg/1 Ml Inj) 2 mg IV Q5MIN PRN PRN Reason: Chest Pain unrelieved by NTG Nitroglycerin (Nitroglycerin 0.4 Mg Tab Subl) 0.4 mg SL Q5M PRN PRN Reason: Chest Pain Sodium Chloride (Sodium Chloride 0.9% 10 Ml Flush Syringe) 10 ml IV PRN PRN PRN Reason: LINE FLUSH Tramadol HCl (Tramadol 50 Mg Tab) 50 mg PO Q6H PRN PRN Reason: Pain, Moderate (4-6) Last Admin: 10/02/21 11:46 Dose: 50 mg Triamcinolone Acetonide (Triamcinolone 0.1% Cream 15 Gm) 1 applic TP TID MARIANNE Last Admin: 10/02/21 08:55 Dose: Not Given Review of Systems Constitutional: no weight loss, no weight gain, no fever Ears, nose, mouth and throat: no nasal discharge, no sinus pressure Cardiovascular: chest pain, no palpitations, no rapid/irregular heart beat, no shortness of breath, no dyspnea on exertion, no paroxysmal nocturnal dyspnea Respiratory: no cough with sputum, no shortness of breath, no dyspnea on exer tion Gastrointestinal: no abdominal pain, no nausea, no vomiting Musculoskeletal: no neck stiffness, no neck pain Integumentary: no rash, no pruritis, no redness Neurological: no head injury, no transient paralysis, no paralysis Psychiatric: no anxiety, no memory loss Endocrine: no cold intolerance, no heat intolerance Hematologic/Lymphatic: no easy bruising, no easy bleeding Physical Examination Vital Signs Temp Pulse Resp BP Pulse Ox 98.9 F 96 H 18 136/92 98 10/02/21 00:11 10/02/21 00:11 10/02/21 00:11 10/02/21 00:11 10/02/21 00:11 General appearance: no acute distress HEENT: Positive: Normocephaly, Other (Cataract) Neck: Positive: trachea midline Cardiac: Positive: Reg Rate and Rhythm Lungs: Positive: Normal Breath Sounds Neuro: Positive: Grossly Intact Abdomen: Positive: Soft, Active Bowel Sounds Extremities: Present: upper extr. pulses. Absent: edema Results 10/02/21 01:00 10/02/21 01:00 Cardiac Enzymes 10/02/21 Range/Units 01:00 AST 16 (5-40) units/L Coagulation 10/02/21 Range/Units 01:00 PT 13.8 (12.2-14.9) Sec. INR 0.96 (0.87-1.13) APTT 26.3 (24.2-36.6) Sec. CBC 10/02/21 Range/Units 01:00 WBC 6.4 (4.5-11.0) K/mm3 RBC 4.37 (3.65-5.03) M/mm3 Hgb 13.0 (10.1-14.3) gm/dl Hct 39.8 (30.3-42.9) % Plt Count 297 (140-440) K/mm3 Lymph # (Auto) 1.3 (1.2-5.4) K/mm3 Lynn # (Auto) 0.3 (0.0-0.8) K/mm3 Eos # (Auto) 0.0 (0.0-0.4) K/mm3 Baso # (Auto) 0.0 (0.0-0.1) K/mm3 Comprehensive Metabolic Panel 10/02/21 Range/Units 01:00 Sodium 141 (137-145) mmol/L Potassium 3.8 (3.6-5.0) mmol/L Chloride 100.2 (98-107) mmol/L Carbon Dioxide 26 (22-30) mmol/L BUN 14 (7-17) mg/dL Creatinine 0.8 (0.6-1.2) mg/dL Glucose 135 H (65-100) mg/dL Calcium 9.8 (8.4-10.2) mg/dL AST 16 (5-40) units/L ALT 13 (7-56) units/L Alkaline Phosphatase 63 (35-129) units/L Total Protein 7.6 (6.3-8.2) g/dL Albumin 4.2 (3.9-5) g/dL - Imaging and Cardiology Echo: report reviewed EKG interpretations - Telemetry EKG Rhythm: Sinus Rhythm - EKG Sinus rhythms and dysrhythmias: sinus rhythm Repolarization changes or abnormalities: nonspecific abnormality, ST segment, and/or T wave Assessment and Plan Patient 78-year-old female with past medical history of cataracts and tobacco abuse who was brought to the ED yesterday after a complaint of sudden onset chest pain x 1 day Atypical chest pain Hypertension Tobacco abuse Echo 10/02/2021-EF 55 to 60%. Normal LV segmental wall motion. Right ventricle systolic function is normal. Trace aortic regurgitation. Trace to mild mitral regurgitation. Trace pulmonic regurgitation. Lexiscan MPI stress test 10/02/2021-normal study. No scintigraphic evidence of myocardial ischemia or scar. Plan: Initial EKG at admission thought to be A. fib however EKG shows sinus rhythm rate 87 no acute ischemic changes EKG this a.m. shows sinus rhythm 86 no acute ischemic changes. Troponins neg ative x1. Patient's chest pain atypical reproduced with palpation. Furthermore patient had normal stress test this a.m. and normal echo. Does not appear to be of cardiac origin Agree with amlodipine 5 mg p.o. daily for BP control Telemetry reviewed patient does not have A. fib and does not need to be anticoagulated Cardiac status otherwise stable for discharge Patient seen in conjunction with Dr. Go who agrees with plan of care - Patient Problems (1) Chest pain Current Visit: Yes Status: Acute Qualifiers: Chest pain type: unspecified Qualified Code(s): R07.9 - Chest pain, unspecified (2) Hypertension Current Visit: Yes Status: Acute (3) Tobacco abuse Current Visit: Yes Status: Acute
[2021-10-02 12:59] VITALS: BP 173/99
--- NOTE | 2021-10-02 12:59 | Discharge Summary ---
Providers - Providers Date of Admission: 10/02/21 04:38 Date of discharge: 10/02/21 Attending physician: BAILEE GUZMAN MD 10/02/21 Consult to Cardiac Rehabilitation [CONS] Routine Reason For Exam: Phase I 10/02/21 04:38 Consult to Cardiology [CONS] Routine Consulting Provider: MEHRAN GUPTA Reason For Exam: acs Primary care physician: KIM SANTOS Hospitalization Reason for admission: Acute coronary syndromeruled out Condition: Stable Pertinent studies: Reviewed. Procedures: Lexiscan myocardial perfusion scan Hospital course: Patient is a 70-year-old female past medical history of hypertension, asthma, tobacco dependence, and prior cataract surgery presented to the ED after experiencing chest pain that started after taking a hot shower. She also described having heart palpitations but denied fevers or chills. The chest pain was radiating to her left upper arm, and she described it as 8/10 in severity without any modifying or relieving factors. On presentation to the ED, the patient was found to be hemodynamically stable and mildly hypertensive with a blood pressure of 136/92. The patient was also found to be in new A. fib. Patient had negative troponins x1. Cardiology was consulted for further management. Patient TTE (10/02/2021) revealed EF 55-60% with normal LV segmental wall motion, normal RV systolic function, trace aortic regurgitation, trace to mild mitral regurgitation, and trace pulmonic regurgitation. Patient underwent Lexiscan myocardial perfusion test (09/28/2021) that was unremarkable for myocardial ischemia or scar. The initial EKG displayed atrial fibrillation; however, a repeat EKG revealed sinus rhythm. Patient is medically clear for discharge. Disposition: 01 HOME / SELF CARE / HOMELESS Final Discharge Diagnosis (Prints w/discharge instructions): Acute coronary syndromeruled out, hypertension, atrial fibrillationruled out, tobacco dependence. Time spent for discharge: 45 min Core Measure Documentation - Palliative Care Palliative Care/ Comfort Measures: Not Applicable - Core Measures Any of the following diagnoses?: none Exam - Constitutional Vitals: Temp Pulse Resp BP Pulse Ox 97.9 F 86 18 158/95 98 10/02/21 07:52 10/02/21 12:00 10/02/21 07:52 10/02/21 10:44 10/02/21 12:00 General appearance: Present: no acute distress, well-nourished - EENT Eyes: Present: PERRL, EOM intact ENT: hearing intact, clear oral mucosa - Neck Neck: Present: supple, normal ROM - Respiratory Respiratory effort: normal Respiratory: bilateral: CTA - Cardiovascular Rhythm: regular Heart Sounds: Present: S1 & S2 - Extremities Extremities: no ischemia, pulses intact, pulses symmetrical, No edema, normal temperature, normal color Peripheral Pulses: within normal limits - Abdominal General gastrointestinal: Present: soft, non-tender, non-distended, normal bowel sounds Female genitourinary: Present: deferred - Rectal Rectal Exam: deferred - Integumentary Integumentary: Present: clear, warm, dry - Musculoskeletal Musculoskeletal: strength equal bilaterally - Psychiatric Psychiatric: appropriate mood/affect, memory intact, cooperative - Neurologic Neurologic: CNII-XII intact, moves all extremities - Allied Health Allied health notes reviewed: nursing Plan Activity: no restrictions Diet: low salt Additional Instructions: Patient is a 70-year-old female past medical history of hypertension, asthma, tobacco dependence, and prior cataract surgery presented to the ED after experiencing chest pain that started after taking a hot shower. She also described having heart palpitations but denied fevers or chills. The chest pain was radiating to her left upper arm, and she described it as 8/10 in severity without any modifying or relieving factors. On presentation to the ED, the patient was found to be hemodynamically stable and mildly hypertensive with a blood pressure of 136/92. The patient was also found to be in new A. fib. Patient had negative troponins x1. Cardiology was consulted for further management. Patient TTE (10/02/2021) revealed EF 55-60% with normal LV segmental wall motion, normal RV systolic function, trace aortic regurgitation, trace to mild mitral regurgitation, and trace pulmonic regurgitation. Patient underwent Lexiscan myocardial perfusion test (09/28/2021) that was unremarkable for myocardial ischemia or scar. The initial EKG displayed atrial fibrillation; however, a repeat EKG revealed sinus rhythm. Patient is medically clear for discharge. Care Plan Goals: Patient is medically clear for discharge. Assessment: Patient is a 70-year-old female past medical history of hypertension, asthma, tobacco dependence, and prior cataract surgery presented to the ED after experiencing chest pain that started after taking a hot shower. She also described having heart palpitations but denied fevers or chills. The chest pain was radiating to her left upper arm, and she described it as 8/10 in severity without any modifying or relieving factors. On presentation to the ED, the patient was found to be hemodynamically stable and mildly hypertensive with a blood pressure of 136/92. The patient was also found to be in new A. fib. Patient had negative troponins x1. Cardiology was consulted for further man agement. Patient TTE (10/02/2021) revealed EF 55-60% with normal LV segmental wall motion, normal RV systolic function, trace aortic regurgitation, trace to mild mitral regurgitation, and trace pulmonic regurgitation. Patient underwent Lexiscan myocardial perfusion test (09/28/2021) that was unremarkable for myocardial ischemia or scar. The initial EKG displayed atrial fibrillation; however, a repeat EKG revealed sinus rhythm. Patient is medically clear for discharge. Follow up with: KIM SANTOS MD [Primary Care Provider] - 7 Days Prescriptions: Amlodipine Besylate [Norvasc] 5 mg PO DAILY #30 tablet
[2021-10-02] MEDS ORDERED: LATANOPROST 0.005% OPHTH SOLN 2.5 ML OD SCH (18:00)
[2021-10-02] MEDS ORDERED: ENOXAPARIN 80 MG/0.8 ML INJ SUB-Q SCH (22:00)
--- NOTE | 2021-10-03 09:49 | Electrocardiograph Report ---
[facility] Test Date: 2021-10-02 Test Time: 00:26:01 Pat Name: MARK MEDRANO Department: Room: A473 1 Gender: F Registered Nurse Post Partum: HENNA : 1950 Requested By: GWEN KWOK Order Number: [id number] Reading MD: Reynaldo Go Measurements Intervals [place] Rate: 87 P: MA: QRS: -10 QRSD: 76 T: -77 QT: 337 QTc: 405 Interpretive Statements nsr with apcfrequent, repeat ekg baseline artifact nonspecific st-t No previous ECG available for comparison Electronically Signed On 10-03-2021 9:48:43 EDT by Reynaldo Go
--- NOTE | 2021-10-03 09:51 | Electrocardiograph Report ---
[facility] Test Date: 2021-10-02 Test Time: 06:57:29 Pat Name: MARK MEDRANO Department: Room: A473 1 Gender: F Real Estate Specialist: LEW : 1950 Requested By: NANCIE RICH Order Number: [id number] Reading MD: Reynaldo Go Measurements Intervals [place] Rate: 86 P: -60 TX: 220 QRS: -25 QRSD: 80 T: 59 QT: 387 QTc: 460 Interpretive Statements Sinus or ectopic atrial rhythm Atrial premature complex Prolonged TX interval nonspecific st-t Compared to ECG 10/02/2021 00:26:01 Ectopic atrial rhythm now present Atrial premature complex(es) now present First degree AV block now present Electronically Signed On 10-03-2021 9:51:31 EDT by Reynaldo Go
[2021-10-03] MEDS ORDERED: ASPIRIN EC 325 MG TAB PO SCH (10:00)
== END 2021-10-02 15:45 | disposition home or self-care (01) ==
LOC: ED 23:00 → 4A 10-02 04:38 → INTOOBSV 10-02 04:38
PROVIDERS: ADMIT Hospitalist; ATTEND Student in an Organized Health Care Education/Training Program
DX: I24.9 Acute ischemic heart disease, unspecified (principal); I10 Essential (primary) hypertension; R07.89 Other chest pain; I48.91 Unspecified atrial fibrillation; F17.200 Nicotine dependence, unspecified, uncomplicated; Z98.49 Cataract extraction status, unspecified eye; Z79.899 Other long term (current) drug therapy; Z98.890 Other specified postprocedural states
CPT/HCPCS: 36415; 71045; 78452; 80053; 83690; 84484; 85025; 85610; 85730; 93005; 93017; 96361; 96372; 96374; 96375; 96376; 99285; A9502; C8929; G0378; J1650; J2270; J2405; J2785; J7030; J7509; 93306